=== PATIENT | male | born 1995 | race Hispanic/Latino ===

== ENCOUNTER 2025-06-11 17:11 | Emergency (ER) | payer OTHER, SELFPAY | END 2025-06-11 18:06 | disposition home or self-care (01) | LOC: MADERS 17:11 | DX: S29.011A Strain of muscle and tendon of front wall of thorax, initial encounter (principal); F17.290 Nicotine dependence, other tobacco product, uncomplicated; X50.0XXA Overexertion from strenuous movement or load, initial encounter | CPT/HCPCS: 99283 ==